=== PATIENT | female | born 2000 | race Caucasian/White ===

== ENCOUNTER 2024-03-12 14:00 | Emergency (ER) | payer OTHER ==
[~2024-03-12] VITALS: Ht 175.3 cm; Wt 123.0 kg
[2024-03-12 14:31] LABS: BASOPHILS 0.3 % (0-2); EOSINOPHILS 0.8 % (0-6); HEMATOCRIT 40.8 % (35.0-50.0); HEMOGLOBIN 13.2 g/dL (12.0-18.0); LYMPHOCYTES 23.3 % (24-44); MCH 26.8 (27-36); MCHC 32.4 g/dl (30-36); MCV 82.8 fl (81-99); MONOCYTES 5.8 % (0-12); NEUTROPHILS 69.8 % (39-80); PLATELET COUNT 321 K/uL (140-440); RBC 4.93 M/ul (4.3-5.7); RDW 16.4 (10.5-15.0)
[2024-03-12 14:44] LABS: ALBUMIN 3.8 g/dL (3.4-5.0); ANION GAP 16.5 (7-21); BILIRUBIN, TOTAL 0.7 ng/dL (0.2-1.0); BUN/CREATININE RATIO 12.5 (6.0-28.6); CREATININE, SERUM 0.88 mg/dL (0.55-1.02); POTASSIUM 3.5 mmol/L (3.5-5.1); PROTEIN, TOTAL 7.6 g/dL (6.4-8.2)
[2024-03-12 14:53] LABS: ABO A; RH NEGATIVE
[2024-03-12] MEDS ORDERED: RHO(D) IMMUNE GLOBULIN 1,500 UNIT/2 ML ML IM ONE (15:30)
[2024-03-12 17:00] VITALS: BP 142/69
[2024-03-12 17:19] LABS: CALCIUM 8.8 mg/dL (8.5-10.1)
== END 2024-03-12 16:59 | disposition home or self-care (01) ==
LOC: ED 14:00
PROVIDERS: Emergency Medicine
DX: O20.9 Hemorrhage in early pregnancy, unspecified (principal); Z3A.01 Less than 8 weeks gestation of pregnancy
CPT/HCPCS: 36415; 76801; 76817; 80053; 84702; 85025; 86900; 86901; 96372; 99284-25; J2790

== ENCOUNTER 2025-01-10 11:41 | Emergency (ER) | payer OTHER ==
[~2025-01-10] VITALS: Ht 175.3 cm; Wt 144.0 kg
[2025-01-10 12:20] LABS: BASOPHILS 0.4 % (0-2); EOSINOPHILS 1.2 % (0-6); HEMATOCRIT 37.9 % (35.0-50.0); HEMOGLOBIN 12.9 g/dL (12.0-18.0); LYMPHOCYTES 27.7 % (24-44); MCH 27.4 (27-36); MCHC 33.9 g/dl (30-36); MCV 80.7 fl (81-99); MONOCYTES 6.3 % (0-12); NEUTROPHILS 64.4 % (39-80); PLATELET COUNT 305 K/uL (140-440); RDW 14.8 (10.5-15.0)
[2025-01-10 12:29] LABS: BILIRUBIN, URINE NEGATIVE (negative); BLOOD/HGB, URINE LARGE (Negative); KETONE, URINE NEGATIVE (Negative); LEUK ESTERASE, URINE NEGATIVE (negative); NITRITE, URINE NEGATIVE (negative)
[2025-01-10 12:37] LABS: CRYSTALS, URINE NONE SEEN (0-1+); EPITHELIAL CELLS, URINE SQUAMOUS 1+ /lpf (0-1+); RED BLOOD CELLS, URINE >50 /hpf (0-5)
[2025-01-10 12:38] LABS: BACTERIA, URINE RARE /hpf (negative); CASTS, URINE NONE SEEN \\lpf; COLLECTION TYPE, URINE CLEAN CATCH; REFLEX CULTURE, URINE No (No)
[2025-01-10 12:43] LABS: ALBUMIN 3.5 g/dL (3.4-5.0); BILIRUBIN, TOTAL 0.3 mg/dL (0.2-1.0); BUN/CREATININE RATIO 10.46 (6.0-28.6); CALCIUM 8.7 mg/dL (8.5-10.1); CREATININE, SERUM 0.86 mg/dL (0.55-1.02)
[2025-01-10 13:34] VITALS: BP 116/71
== END 2025-01-10 13:34 | disposition home or self-care (01) ==
LOC: ED 11:41
PROVIDERS: Emergency Medicine
DX: O20.0 Threatened abortion (principal)
CPT/HCPCS: 36415; 80053; 81001; 84702; 85025; 99284